=== PATIENT | male | born 1985 | race American Indian/Alaskan Native ===

== ENCOUNTER 2021-06-15 12:19 | Emergency (ER) | payer OTHER ==
[~2021-06-15] VITALS: Ht 167.6 cm; Wt 108.9 kg
--- NOTE | 2021-06-15 16:33 | EKG ---
[facility] [address] [facility] [place] [address] Signed Sinus tachycardia Anterior infarct , age undetermined Abnormal ECG No previous ECGs available Confirmed by KARLY BOYLE DO ([id number]) on 06/15/2021 4:32:46 PM Electronically Signed By: KARLY BOYLE DO 06/15/21 1633 PATIENT NAME: NARESH ALEXIS Electrocardiogram DATE OF : 85 PHYSICIAN: KARLY BOYLE DO REPORT #: [id number] REPORT IS CONFIDENTIAL AND NOT TO BE RELEASED WITHOUT AUTHORIZATION
== END 2021-06-15 15:05 | disposition home or self-care (01) ==
LOC: ED 12:19
DX: R07.9 Chest pain, unspecified (principal); Z20.822 Contact with and (suspected) exposure to COVID-19
CPT/HCPCS: 71045; 80053; 83735; 84484; 85025; 93005; 93010; 99285-25; C9803; U0003

== ENCOUNTER 2021-08-28 10:30 | Emergency (ER) | payer OTHER ==
[~2021-08-28] VITALS: Ht 167.6 cm; Wt 118.2 kg
== END 2021-08-28 13:37 | disposition home or self-care (01) ==
LOC: ED 10:30
DX: S90.31XA Contusion of right foot, initial encounter (principal); W20.8XXA Other cause of strike by thrown, projected or falling object, initial encounter
CPT/HCPCS: 73630; 99283-25

== ENCOUNTER 2023-05-04 13:24 | Emergency (ER) | payer OTHER ==
[~2023-05-04] VITALS: Ht 167.6 cm; Wt 118.2 kg
[2023-05-04 13:45] LABS: BASOPHILS 1.7 % (0-2); EOSINOPHILS 0.6 % (0-6); HEMATOCRIT 47.2 % (35.0-50.0); HEMOGLOBIN 16.1 g/dL (12.0-18.0); LYMPHOCYTES 18.5 % (24-44); MCH 27.1 (27-36); MCHC 34.1 g/dl (30-36); MCV 79.5 fl (81-99); MONOCYTES 2.1 % (0-12); NEUTROPHILS 77.1 % (39-80); PLATELET COUNT 297 K/uL (140-440); RBC 5.93 M/ul (4.3-5.7); RDW 13.1 (10.5-15.0)
[2023-05-04 14:03] LABS: ALBUMIN/GLOBULIN RATIO 0.93 (1.1-2.4); ALKALINE PHOSPHATASE 111 U/L (46-116); ALT (SGPT) 37 U/L (14-59); ANION GAP 12.9 (7-21); AST (SGOT) 24 U/L (15-37); BILIRUBIN, TOTAL 0.3 ng/dL (0.2-1.0); CALCIUM 8.6 mg/dL (8.5-10.1); CARBON DIOXIDE 25 mmol/L (21-32); CHLORIDE 97 mmol/L (98-107); CREATININE, SERUM 0.89 mg/dL (0.70-1.30); GLOMERULAR FILTRATION RATE,EST 112 mL/min (>60); MAGNESIUM 1.7 mg/dL (1.8-2.4); POTASSIUM 3.9 mmol/L (3.5-5.1); PROTEIN, TOTAL 8.3 g/dL (6.4-8.2); UREA NITROGEN 17 mg/dL (7-18)
[2023-05-04] MEDS ORDERED: ADULT LOW DOSE81 MG PO (15:14)
[2023-05-04] MEDS ORDERED: NITROGLYCERIN0.4 MG SL (15:14)
[2023-05-04 15:27] VITALS: BP 131/90
--- NOTE | 2023-05-05 13:18 | EKG ---
[facility] [address] [facility] [place] [address] Signed Normal sinus rhythm with sinus arrhythmia Normal ECG No previous ECGs available Confirmed by AKILA SANDOVAL MD ([id number]) on 05/05/2023 1:17:54 PM Electronically Signed By: AKILA SANDOVAL 05/05/23 1318 PATIENT NAME: NARESH ALEXIS Electrocardiogram DATE OF : 85 PHYSICIAN: AKILA SANDOVAL REPORT #: [id number] REPORT IS CONFIDENTIAL AND NOT TO BE RELEASED WITHOUT AUTHORIZATION
--- NOTE | 2023-05-05 13:18 | EKG ---
[facility] [address] [facility] [place], [place] [address] Signed Normal sinus rhythm Normal ECG No previous ECGs available Confirmed by AKILA SANDOVAL MD ([id number]) on 05/05/2023 1:17:44 PM Electronically Signed By: AKILA SANDOVAL 05/05/23 1318 PATIENT NAME: NARESH ALEXIS Electrocardiogram DATE OF : 85 PHYSICIAN: AKILA SANDOVAL REPORT #: [id number] REPORT IS CONFIDENTIAL AND NOT TO BE RELEASED WITHOUT AUTHORIZATION
== END 2023-05-04 15:26 | disposition home or self-care (01) ==
LOC: ED 13:24
PROVIDERS: Emergency Medicine
DX: R07.2 Precordial pain (principal)
CPT/HCPCS: 36415; 71045; 80053; 83735; 84484; 85025; 93005; 93010

== ENCOUNTER 2024-12-19 19:56 | Emergency (ER) | payer BC, OTHER ==
[~2024-12-19] VITALS: Ht 167.6 cm; Wt 108.0 kg
[~2024-12-19 19:56] MED LIST: ADULT LOW DOSE81 MG PO; NITROGLYCERIN0.4 MG SL
[2024-12-19 21:32] LABS: BASOPHILS 0.6 % (0.2-1.2); EOSINOPHILS 1.4 % (0.8-7.0); LYMPHOCYTES 17.4 % (21.8-53.1); MCH 26.8 PG (25.7-32.2); MCHC 34.0 g/dL (32.3-36.5); MCV 79.0 fL (79.0-92.2); MONOCYTES 6.1 % (5.3-12.2); NEUTROPHILS 73.9 % (34.0-67.9); RBC 5.44 M/uL (4.63-6.08)
[2024-12-19 21:50] LABS: ALT (SGPT) 18.0 U/L (14-59); AST (SGOT) 10.0 U/L (15-37); GLOMERULAR FILTRATION RATE,EST 118.0 mL/min (>60); PROTEIN, TOTAL 7.9 g/dL (6.4-8.2); UREA NITROGEN 15.0 mg/dL (7-18)
[2024-12-19] MEDS ORDERED: MORPHINE SULFATE 4 MG/ML VIAL IV ONE (22:00)
[2024-12-19] MEDS ORDERED: KETOROLAC TROMETHAMINE 30 MG/ML VIAL IV ONE (22:30)
[2024-12-19] MEDS ORDERED: TRAMADOL HCL100 M2 PO (22:32)
[2024-12-19] MEDS ORDERED: AMOX TR-K CLV1 EAC1 PO (22:32)
[2024-12-19] MEDS ORDERED: TRAMADOL HCL 50 MG HOME.PACK PO ONE (22:45)
[2024-12-19] MEDS ORDERED: AMOXICILLIN/CLAVULANATE K 875 MG HOME.PACK PO ONE (22:45)
[2024-12-19 22:52] VITALS: BP 141/82
== END 2024-12-19 22:53 | disposition home or self-care (01) ==
LOC: ED 19:56
PROVIDERS: Family Medicine
DX: L02.11 Cutaneous abscess of neck (principal); I10 Essential (primary) hypertension
CPT/HCPCS: 36415; 70491; 80053; 85025; 99283-25; A9270; J1885; Q9967